=== PATIENT | male | born 1965 | race Asian ===

== ENCOUNTER 2017-04-22 10:17 | Emergency (ER) | payer OTHER ==
[~2017-04-22] VITALS: Ht 167.6 cm; Wt 61.8 kg
[2017-04-22 10:33] LABS: GLUCOSE,POINT OF CARE 334 MG/DL (70-110)
[2017-04-22] MEDS ORDERED: GLIM4 PO (10:41)
[2017-04-22] MEDS ORDERED: METF500T4 PO (10:41)
[2017-04-22] MEDS ORDERED: GABA-529 PO (10:41)
[2017-04-22] MEDS ORDERED: LOSA25TA21 PO (10:41)
[2017-04-22] MEDS ORDERED: PIOG30TA10 PO (10:41)
[2017-04-22] MEDS ORDERED: CABO20TA PO (10:41)
[2017-04-22] MEDS ORDERED: [UNRECOGNIZED DRUG - OTHER] PO (10:41)
[2017-04-22] MEDS ORDERED: AMIT10TA6 PO (10:41)
[2017-04-22] MEDS ORDERED: SODIUM CHLORIDE 0.9% 1,000 ML IV ONE (12:00)
[2017-04-22] MEDS ORDERED: KETOROLAC TROMETHAMINE 30 MG/ML VIAL IVP ONE (12:45)
[2017-04-22 12:53] LABS: GLUCOSE,POINT OF CARE 359 MG/DL (70-110)
[2017-04-22] MEDS ORDERED: INSULIN REGULAR, HUMAN 100 UNITS/ML IVP ONE (13:15)
[2017-04-22 13:51] LABS: GLUCOSE,POINT OF CARE 160 MG/DL (70-110)
[2017-04-22 14:15] VITALS: BP 141/82
== END 2017-04-22 14:27 | disposition home or self-care (01) ==
LOC: EMS 10:21
DX: S52.501A Unspecified fracture of the lower end of right radius, initial encounter for closed fracture (principal); E11.65 Type 2 diabetes mellitus with hyperglycemia; E78.00 Pure hypercholesterolemia, unspecified; V29.49XA Motorcycle driver injured in collision with other motor vehicles in traffic accident, initial encounter; Y93.55 Activity, bike riding; Y92.488 Other paved roadways as the place of occurrence of the external cause; Y99.8 Other external cause status
CPT/HCPCS: 29125; 73030; 73080; 73110; 82962; 96374; 96375; 99284; J1815; J1885; J7030; 99285